=== PATIENT | male | born 1985 | race Caucasian/White ===

== ENCOUNTER 2018-09-27 18:52 | Observation (INO) ==
[2018-09-27] MEDS ORDERED: HYDROmorphone 2 MG/1 ML VIAL IV STA ×2 (20:45→22:03)
[2018-09-27] MEDS ORDERED: SODIUM CHLORIDE 0.9% 1,000 ML IV STA (20:45)
[2018-09-27] MEDS ORDERED: ONDANSETRON 4 MG/2 ML VIAL IV STA (20:45)
[2018-09-27 21:13] LABS: Basophils # 0.1 10*3/uL (0.0-0.2); Basophils % 0.4 % (0.0-0.8); Eosinophils % 0.3 % (0.00-10.9); Hematocrit 42.1 VOL% (42.0-52.0); Hemoglobin 14.2 GM/DL (14.0-18.0); Immature Granulocytes % 0.5 %; Immature Granulocytes Absolute 0.07 #; Lymphocytes # 1.8 10*3/uL (1.4-4.0); Lymphocytes % 13.5 % (21.2-54.2); Mean Corpuscular HGB Conc 33.7 GM/DL (32-36); Mean Corpuscular Hemoglobin 30 PG (27-34); Mean Corpuscular Volume 88.4 FL (87-102); Mean Platelet Volume 10.1 FL (9.6-12.0); Monocytes # 1.1 10*3/uL (0.11-0.8); Monocytes % 8.2 % (1.7-12.7); Neutrophils # 10.3 10*3/uL (1.4-7.4); Neutrophils % 77.1 % (38.7-73.9); Platelet Count 213 T/CUMM (130-400); Red Blood Count 4.76 MC/CUMM (3.8-5.5); Red Cell Distribution Width 12.3 % (9.3-17.3); White Blood Count 13.3 T/CUMM (4-12)
[2018-09-27 21:49] LABS: Alanine Aminotransferase 50 U/L (16-61); Albumin 3.8 G/DL (3.4-5.0); Alkaline Phosphatase 59 U/L (45-117); Aspartate Amino Transferase 24 U/L (0-37); Bilirubin,Total < 0.39 MG/DL (0.2-1.0); Blood Urea Nitrogen 15 MG/DL (7-18); Calcium 9.2 MG/DL (8.5-10.1); Glucose 91 MG/DL (74-106); Potassium 3.9 MMOL/L (3.5-5.1); Sodium 143 MMOL/L (136-145); Total Protein 7.5 G/DL (6.4-8.3)
[2018-09-27] MEDS ORDERED: ONDANSETRON 4 MG/2 ML VIAL IV PRN (22:04)
[2018-09-27] MEDS ORDERED: PIPERACILLIN/TAZOBACTAM 3,375 MG in SODIUM CHLORIDE 0.9% 100 ML IV STA ×2 (22:09→22:12)
[2018-09-27] MEDS: DEXTROSE 5% LACTATED RINGERS 1,000 ML IV SCH (23:43)
[2018-09-27] MEDS: HYDROmorphone 2 MG/1 ML VIAL IV PRN (23:44)
[2018-09-28] MEDS ORDERED: VANCOMYCIN INJ 1,500 MG in SODIUM CHLORIDE 0.9% 500 ML IV SCH (04:00)
[2018-09-28] MEDS: HYDROmorphone 2 MG/1 ML VIAL IV PRN ×2 (04:02→09:12)
[2018-09-28] MEDS ORDERED: PANTOPRAZOLE 40 MG VIAL IV SCH (09:00)
[2018-09-28] MEDS: DEXTROSE 5% LACTATED RINGERS 1,000 ML IV SCH (09:00)
[2018-09-28] MEDS: PIPERACILLIN/TAZOBACTAM 3,375 MG in SODIUM CHLORIDE 0.9% 100 ML IV SCH (09:14)
[2018-09-28] MEDS ORDERED: HYDROmorphone 2 MG/1 ML VIAL IV PRN ×3 (10:15→12:34)
[2018-09-28] MEDS ORDERED: oxyCODONE/ACETAMINOPHEN 5-325 MG TABLET PO PRN (10:15)
[2018-09-28] MEDS ORDERED: diphenhydrAMINE CAP 25 MG CAPSULE PO PRN (10:16)
[2018-09-28] MEDS ORDERED: diphenhydrAMINE CAP 50 MG CAPSULE PO PRN (10:16)
[2018-09-28] MEDS ORDERED: DEXTROSE 5% LACTATED RINGERS 1,000 ML IV SCH (10:30)
[2018-09-28] MEDS ORDERED: LIDOCAINE 1%/EPI INJ 20 ML VIAL ONE (11:32)
[2018-09-28] MEDS ORDERED: PROPOFOL 200 MG/20 ML VIAL IV ONE (12:32)
[2018-09-28] MEDS ORDERED: MIDAZOLAM 2 MG/2 ML VIAL ONE (12:33)
[2018-09-28] MEDS ORDERED: ONDANSETRON 4 MG/2 ML VIAL ONE (12:33)
[2018-09-28] MEDS ORDERED: SEVOFLURANE 1 UNIT/15 MINUTE INH ONE (12:33)
[2018-09-28] MEDS ORDERED: fentaNYL 100 MCG/2 ML VIAL ONE (12:33)
[2018-09-28] MEDS ORDERED: KETOROLAC 30 MG/1 ML VIAL ONE (12:33)
[2018-09-28] MEDS ORDERED: PROMETHAZINE INJ 25 MG in SODIUM CHLORIDE 0.9% 50 ML IV PRN (12:34)
[2018-09-28] MEDS ORDERED: ONDANSETRON 4 MG/2 ML VIAL IV PRN (12:34)
[2018-09-28] MEDS ORDERED: MEPERIDINE 25 MG/1 ML VIAL IV PRN (12:34)
[2018-09-28] MEDS: oxyCODONE/ACETAMINOPHEN 5-325 MG TABLET PO PRN ×2 (17:07→21:34)
[2018-09-29] MEDS: PIPERACILLIN/TAZOBACTAM 3,375 MG in SODIUM CHLORIDE 0.9% 100 ML IV SCH ×2 (00:03→10:05)
[2018-09-29 05:22] LABS: Basophils % 0.4 % (0.0-0.8); Eosinophils # 0.2 10*3/uL (0.0-0.87); Eosinophils % 2.8 % (0.00-10.9); Hematocrit 38.1 VOL% (42.0-52.0); Hemoglobin 12.9 GM/DL (14.0-18.0); Immature Granulocytes % 0.2 %; Immature Granulocytes Absolute 0.02 #; Lymphocytes # 1.9 10*3/uL (1.4-4.0); Lymphocytes % 22.9 % (21.2-54.2); Mean Corpuscular HGB Conc 33.9 GM/DL (32-36); Mean Corpuscular Hemoglobin 30 PG (27-34); Mean Corpuscular Volume 88.8 FL (87-102); Monocytes # 0.9 10*3/uL (0.11-0.8); Monocytes % 11.1 % (1.7-12.7); Neutrophils # 5.1 10*3/uL (1.4-7.4); Neutrophils % 62.6 % (38.7-73.9); Platelet Count 204 T/CUMM (130-400); Red Blood Count 4.29 MC/CUMM (3.8-5.5); Red Cell Distribution Width 12.3 % (9.3-17.3); White Blood Count 8.2 T/CUMM (4-12)
[2018-09-29 05:49] LABS: Calcium 8.5 MG/DL (8.5-10.1); Osmolality,Calculated 281.3 MOS/KG (273-304); Potassium 3.8 MMOL/L (3.5-5.1)
[2018-09-29] MEDS ORDERED: PANTOPRAZOLE 40 MG TABLET PO SCH (09:00)
[2018-09-29] MEDS ORDERED: FENOFIBRATE 145 MG TABLET PO SCH (09:00)
[2018-09-29] MEDS ORDERED: BISACODYL 5 MG TABLET PO SCH (09:00)
[2018-09-29] MEDS: oxyCODONE/ACETAMINOPHEN 5-325 MG TABLET PO PRN (10:03)
[2018-09-29] MEDS: COLESTIPOL 1 GM TABLET PO SCH ×2 (10:03→10:13)
[2018-09-29 12:10] VITALS: BP 133/76
== END 2018-09-29 12:56 | disposition home or self-care (01) ==
LOC: N.ED 18:52 → N.EDINP 22:04 → INTOOBSV 22:04 → N.3E 22:42
PROVIDERS: ADMIT Surgery; ATTEND Surgery

== ENCOUNTER 2019-01-30 15:57 | Observation (INO) ==
[2019-01-30] MEDS ORDERED: ONDANSETRON 4 MG/2 ML VIAL IV PRN (16:01)
[2019-01-30] MEDS ORDERED: DOCUSATE SODIUM 100 MG CAPSULE PO PRN (16:01)
[2019-01-30] MEDS: KETOROLAC 30 MG/1 ML VIAL IV PRN (18:35)
[2019-01-30] MEDS: SODIUM CHLORIDE 0.9% 1,000 ML IV SCH (18:36)
[2019-01-30 18:52] LABS: Basophils % 0.7 % (0.0-0.8); Eosinophils # 0.1 10*3/uL (0.0-0.87); Eosinophils % 2.4 % (0.00-10.9); Hematocrit 38.2 VOL% (42.0-52.0); Hemoglobin 12.8 GM/DL (14.0-18.0); Immature Granulocytes % 0.2 %; Immature Granulocytes Absolute 0.01 #; Lymphocytes # 1.5 10*3/uL (1.4-4.0); Lymphocytes % 33.3 % (21.2-54.2); Mean Corpuscular HGB Conc 33.5 GM/DL (32-36); Mean Platelet Volume 10.3 FL (9.6-12.0); Monocytes % 12.8 % (1.7-12.7); Neutrophils % 50.6 % (38.7-73.9); Platelet Count 222 T/CUMM (130-400); Red Blood Count 4.34 MC/CUMM (3.8-5.5); Red Cell Distribution Width 12.6 % (9.3-17.3); White Blood Count 4.5 T/CUMM (4-12)
[2019-01-30 19:15] LABS: Osmolality,Calculated 286.1 MOS/KG (273-304)
[2019-01-30] MEDS ORDERED: VANCOMYCIN INJ 1,500 MG in SODIUM CHLORIDE 0.9% 500 ML IV SCH (20:00)
[2019-01-30] MEDS: SULFAMETHOX/TRIMETHOPRIM 800-160 MG TABLET PO SCH (20:37)
[2019-01-30] MEDS: ENOXAPARIN 30 MG/0.3 ML SYRINGE SUBCUT SCH (20:37)
[2019-01-31] MEDS: VANCOMYCIN INJ 1,500 MG in SODIUM CHLORIDE 0.9% 500 ML IV SCH ×2 (10:18→20:06)
[2019-01-31] MEDS: SULFAMETHOX/TRIMETHOPRIM 800-160 MG TABLET PO SCH ×2 (10:21→20:06)
[2019-01-31] MEDS: PANTOPRAZOLE 40 MG TABLET PO SCH (10:21)
[2019-01-31] MEDS: KETOROLAC 30 MG/1 ML VIAL IV PRN (12:01)
[2019-01-31] MEDS: ENOXAPARIN 30 MG/0.3 ML SYRINGE SUBCUT SCH (20:06)
[2019-01-31] MEDS: COLESTIPOL 1 GM TABLET PO SCH (20:06)
[2019-01-31] MEDS: SODIUM CHLORIDE 0.9% 1,000 ML IV SCH (20:07)
[2019-02-01] MEDS ORDERED: BISACODYL 5 MG TABLET PO SCH (09:00)
[2019-02-01] MEDS ORDERED: FENOFIBRATE 145 MG TABLET PO SCH (09:00)
[2019-02-01] MEDS: COLESTIPOL 1 GM TABLET PO SCH (09:14)
[2019-02-01] MEDS: SULFAMETHOX/TRIMETHOPRIM 800-160 MG TABLET PO SCH (09:14)
[2019-02-01] MEDS: PANTOPRAZOLE 40 MG TABLET PO SCH (09:14)
[2019-02-01] MEDS: VANCOMYCIN INJ 1,500 MG in SODIUM CHLORIDE 0.9% 500 ML IV SCH ×2 (09:27→17:12)
[2019-02-01 16:43] VITALS: BP 118/60
== END 2019-02-01 19:26 | disposition home or self-care (01) ==
LOC: N.2E
PROVIDERS: ADMIT Family Medicine; ATTEND Family Medicine